=== PATIENT | female | born 1950 | race Caucasian/White ===

== ENCOUNTER 2024-05-19 03:01 | Inpatient (IN) | payer MEDICARE ==
[2024-05-19] MEDS ORDERED: HEPARIN SODIUM 1,000 UN/ML (10ML VL) IV PRN (03:16)
[2024-05-19] MEDS ORDERED: NALOXONE 0.4 MG/ML 1 ML VIAL IV PRN ×2 (03:27→08:24)
[2024-05-19] MEDS ORDERED: ONDANSETRON 4 MG/2 ML VIAL IVP PRN (03:27)
[2024-05-19] MEDS: SODIUM CHLORIDE 0.9% 1,000 ML IV STA (03:33)
[2024-05-19 03:41] LABS: Basophils # (A) 0.1 k/uL (0-0.2); Basophils % (A) 1 %; Eosinophils # (A) 0.2 k/uL (0-0.7); Eosinophils % (A) 2 %; HCT 42.5 % (34.0-46.0); HGB 13.4 gm/dL (11.4-16.0); Lymphocytes # (A) 2.5 k/uL (1.0-4.8); Lymphocytes % (A) 32 %; MCH 27.9 pg (25.0-35.0); MCHC 31.7 g/dL (31.0-37.0); Mean Platelet Volume 7.9; Monocytes # (A) 0.4 k/uL (0-1.0); Monocytes % (A) 6 %; Neutrophils # (A) 4.5 k/uL (1.3-7.7); Neutrophils % (A) 58 %; Platelet Count 237 k/uL (150-450); RBC 4.83 m/uL (3.80-5.40); WBC 7.7 k/uL (3.8-10.6)
[2024-05-19] MEDS: HEPARIN SOD,PORK IN 0.45% NACL 25,000 UNIT in 0.45% NACL 1 250ML.BAG IV SCH (03:46)
[2024-05-19 03:54] LABS: INR 1.1 (<1.2); Partial Thromboplastin Time 78.8 sec (22.0-30.0); Prothrombin Time 11.8 sec (10.0-12.5)
--- NOTE | 2024-05-19 03:58 | ED ---
General Adult HPI - General Chief complaint: Chest Pain Stated complaint: nstemi Time Seen by Provider: 05/19/24 03:10 Source: patient, EMS, RN notes reviewed, old records reviewed Mode of arrival: EMS Limitations: no limitations - History of Present Illness Initial comments: Patient is a 74-year-old female presents emergency department after being transferred from [facility] for chest pain. Patient has been having 2 days of intermittent chest discomfort. She had no symptoms when she arrived at the outside emergency department for evaluation. Patient has no cardiac history. Has a history of hypothyroidism and is on Synthroid. States she was having intermittent chest pain over the last 2 days. Describes it as all over t he front of her chest and a pressure sensation. No radiation of the pain. Would have associated diaphoresis and some mild nausea with it. Last occurred per patient at approximately 4 PM on May 18, 2024. Unknown how long it lasted however patient stated that it resolved by the time she was seen at the outside ER. Patient was transferred here for an NSTEMI as the patient had an elevated troponin on their assay. Remainder the patient's workup was unremarkable at the other facility. Presents for further evaluation at this time. Patient was screened for possible blood clot as she did have recent hip replacement however age-adjusted D-dimer was within normal limits. Patient currently presents after being transferred on a heparin drip. Already received 324 mg of aspirin. States she has no acute complaints at this time. Denies any current chest pain at this time. - Related Data Allergies Allergy/AdvReac Type Severity Reaction Status Date / Time bacitracin Allergy Rash/Hives Verified 05/19/24 03:18 [From Neosporin ([id number])] neomycin Allergy Rash/Hives Verified 05/19/24 03:18 [From Neosporin ([id number])] Penicillins Allergy Rash/Hives Verified 05/19/24 03:18 polymyxin B Allergy Rash/Hives Verified 05/19/24 03:18 [From Neosporin ([id number])] Review of Systems ROS Statement: Those systems with pertinent positive or pertinent negative responses have been documented in the HPI. Review of Systems: CONST: Denies fever EYES: Denies blurry vision ENT: Denies nasal congestion C/V: Denies Chest pain RESP: Denies shortness of breath GI: Denies abdominal pain : Denies dysuria SKIN: Denies rash. MSK: Denies joint pain. NEURO: Denies headache ROS Other: All systems not noted in ROS Statement are negative. Past Medical History Past Medical History: Hyperlipidemia, Thyroid Disorder History of Any Multi-Drug Resistant Organisms: None Reported Past Surgical History: Hysterectomy, Orthopedic Surgery Past Psychological History: No Psychological Hx Reported Smoking Status: Former smoker Past Alcohol Use History: Rare Past Drug Use History: None Reported General Exam - General Exam Comments Initial Comments: General: Appears in no acute distress. HEAD: Normal with no signs of head trauma. EYES: PERRLA, EOMI, conjunctiva normal, no discharge. ENT: Hearing grossly intact, normal oropharynx. RESPIRATORY: Clear breath sounds bilaterally. No wheezes, rales, or rhonchi. C/V: Regular rate and rhythm. S1 and S2 auscultated, no edema, peripheral pulses 2+ and intact throughout ABD: Abd is soft, nontender, nondistended EXT: Normal range of motion, no obvious deformity SKIN: No rashes or lesions observed on exposed skin. NEURO: Alert and oriented x 4. Cranial nerves II-XII intact. No focal sensory or strength deficits. Limitations: no limitations Course Vital Signs 05/19/24 03:08 Temperature 97.6 F Pulse Rate 69 Respiratory 17 Rate Blood Pressure 139/71 O2 Sat by Pulse 99 Oximetry Medical Decision Making - Medical Decision Making Was pt. sent in by a medical professional or institution (MIRIAM Escobar, BAGGING MACHINE OPERATOR, urgent care, hospital, or residential...) When possible be specific @ -Transferred from [facility] for cardiac evaluation for NSTEMI. Did you speak to anyone other than the patient for history (EMS, parent, family, police, friend...)? What history was obtained from this source @ -No Did you review nursing and triage notes (agree or disagree)? Why? @ -I reviewed and agree with nursing and triage notes Were old charts reviewed (outside hosp., previous admission, EMS record, old EKG, old radiological studies, urgent care reports/EKG's, residential records)? Report findings @ -Reviewed charts from [facility] which did show the elevated troponin. Differential Diagnosis (chest pain, altered mental status, abdominal pain women, abdominal pain men, vaginal bleeding, weakness, fever, dyspnea, syncope, headache, dizziness, GI bleed, back pain, seizure, CVA, palpatations, mental health, musculoskeletal)? @ -Differential Chest Pain: Stable Angina, Unstable Angina, STEMI, NSTEMI Aortic Dissection, Pneumothorax, Musculoskeletal, Esophageal Spasm GERD, Cholecystitis, Pancreatitis, Zoster, this is not meant to be an all-inclusive list. EKG interpreted by me (3pts min.). @ -As above X-rays interpreted by me (1pt min.). @ -None done CT interpreted by me (1pt min.). @ -None done U/S interpreted by me (1pt. min.). @ -None done What testing was considered but not performed or refused? (CT, X-rays, U/S, labs)? Why? @ -None What meds were considered but not given or refused? Why? @ -None Did you discuss the management of the patient with other professionals (professionals i.e. , PA, BAGGING MACHINE OPERATOR, lab, RT, psych nurse, family welfare social work professor, gum dipper, teacher, parole or probation officer, welfare case worker)? Give summary @ -Discussed with midlevel provider Hank of [facility] who accepted the admission. Was smoking cessation discussed for >3mins.? @ -No Was critical care preformed (if so, how long)? @ -yes, 30 minutes. Were there social determinants of health that impacted care today? How? (Homelessness, low income, unemployed, alcoholism, drug addiction, transportation, low edu. Level, literacy, decrease access to med. care, prison, rehab)? @ -No Was there de-escalation of care discussed even if they declined (Discuss DNR or withdrawal of care, Hospice)? DNR status @ -No What co-morbidities impacted this encounter? (DM, HTN, Smoking, COPD, CAD, Cancer, CVA, ARF, Chemo, Hep., AIDS, mental health diagnosis, sleep apnea, morbid obesity)? @ -None Was patient admitted / discharged? Hospital course, mention meds given and route, prescriptions, significant lab abnormalities, going to OR and other perti nent info. @ -Based on the patient's presentation and physical exam, presents emergency department for admission for cardiac evaluation for NSTEMI. Found to have elevated troponin with no EKG changes at outside hospital. Was initiated on heparin drip after receiving 324 mg of aspirin. Patient has been asymptomatic since last episode of chest pain at approximately 4 PM yesterday afternoon. She remains asymptomatic at this time with stable vital signs. I discussed with the patient and she will be admitted with cardiology evaluation. Echo ordered. Patient made n.p.o. for now until evaluation by cardiology. She was in agreement this plan. EKG showed T wave inversions in lead III and aVF.Patient was admitted, patient's laboratory results returned. They are remarkable for an elevated troponin of 2.290. I did reevaluate the patient at approximately 0430. She continues to have no symptoms at all. Denies chest pain, shortness of breath. We will keep the patient n.p.o. and continue with admission for NSTEMI. Advised the patient to let us know if she begins having any chest pain or symptoms. She was in agreement this plan. I spoke with the admitting team, DEMETRIS Mckinney of [facility] who accepted the admission. Cardiology was consulted. Undiagnosed new problem with uncertain prognosis? @ -No Drug Therapy requiring intensive monitoring for toxicity (Heparin, Nitro, Insulin, Cardizem)? @ -Heparin Were any procedures done? @ -No Diagnosis/symptom? @ -NSTEMI Acute, or Chronic, or Acute on Chronic? @ -Acute Uncomplicated (without systemic symptoms) or Complicated (systemic symptoms)? @ -Complicated Side effects of treatment? @ -No Exacerbation, Progression, or Severe Exacerbation? @ -No Poses a threat to life or bodily function? How? (Chest pain, USA, OR, pneumonia, PE, COPD, DKA, ARF, appy, cholecystitis, CVA, Diverticulitis, Homicidal, Suicidal, threat to staff... and all critical care pts) @ -Yes - Lab Data Result diagrams: 05/19/24 03:31 - EKG Data -: EKG Interpreted by Me EKG Comments: 12-lead Electrocardiogram Interpretation Note EKG was reviewed and interpreted by myself. 12-lead ECG performed at 0319 is interpreted by me as revealing normal sinus rhythm at a rate of 67 beats per minute. Lowry is normal. OH interval is 166 ms, QRS duration is 74 ms, QTc is 374 ms. T wave inversion seen in III and aVF.. There were no ST abnormalities to suggest myocardial ischemia or injury. R wave progression across the precordium was satisfactory. By my interpretation this EKG is non-diagnostic for acute ischemia. Critical Care Time Critical Care Time: Yes Total Critical Care Time: 30 Disposition Clinical Impression: Acute non-ST elevation myocardial infarction (NSTEMI) Disposition: ADMITTED IP TO THIS HOSP Condition: Serious Time of Disposition: 03:27
[2024-05-19 04:37] LABS: Blood Urea Nitrogen 17 mg/dL (7-17); Total Bilirubin 0.4 mg/dL (0.2-1.3)
[2024-05-19 06:09] LABS: ALT 15 U/L (4-34); AST 30 U/L (14-36); African American GFR (CKD) >90 (>60 ml/min/1.73 sqM); Albumin 3.6 g/dL (3.5-5.0); Alkaline Phosphatase 131 U/L (38-126); Anion Gap 5 mmol/L; Calcium 9.9 mg/dL (8.4-10.2); Carbon Dioxide 27 mmol/L (22-30); Chloride 104 mmol/L (98-107); Glucose 96 mg/dL (74-99); Magnesium 1.9 mg/dL (1.6-2.3); Non-African American GFR(CKD) 78 (>60 ml/min/1.73 sqM); Sodium 136 mmol/L (137-145); Total Protein 6.3 g/dL (6.3-8.2)
[2024-05-19] MEDS ORDERED: MELATONIN 3 MG TABLET PO PRN (08:24)
[2024-05-19] MEDS ORDERED: ACETAMINOPHEN TAB 325 MG TAB PO PRN (08:24)
--- NOTE | 2024-05-19 08:26 | P.HPIM ---
History of Present Illness H&P Date: 05/19/24 History of present illness; patient is a 74-year-old lady with past medical history significant for hypothyroidism who is a transfer from [facility] for chest pain. Patient stated she was all right yesterday evening when after dinnertime she started noticing chest pressure that was central in location, nonradiating, associated with diaphoresis and lightheadedness. Patient also having shortness of breath at time. That episode lasted 15 minutes, it was followed by another episode a few minutes later. Patient denied any palpitation at the time. There was no complaint of orthopnea or PND. Patient denies any swelling of feet. Patient did mention she had a similar episode a couple of days back as well. Because of this chest pain, patient was brought to [facility] where she was found to have elevated troponin and started on heparin and was transferred to [facility]. Patient is recent history of hip surgery Initial lab work done in the ER showed WBC 7.7, hemoglobin 13.4, platelet count 237, sodium 136, potassium 4, BUN 17, creatinine 0.75, calcium 9.9, magnesium 1.1, troponin 2.290 EKG done in the ER showed heart rate of 67, no ST segment elevation or depression seen, no T-wave inversions seen. Patient admitted to internal medicine service REVIEW OF SYSTEMS: CONSTITUTIONAL: No fever, no malaise, no fatigue. HEENT: No recent visual problems or hearing problems. Denied any sore throat. CARDIOVASCULAR: As mentioned above PULMONARY: As mentioned above GASTROINTESTINAL: No diarrhea, no nausea, no vomiting, no abdominal pain. NEUROLOGICAL: No headaches, no weakness, no numbness. HEMATOLOGICAL: Denies any bleeding or petechiae. GENITOURINARY: Denies any burning micturition, frequency, or urgency. MUSCULOSKELETAL/RHEUMATOLOGICAL: Denies any joint pain, swelling, or any muscle pain. ENDOCRINE: Denies any polyuria or polydipsia. The rest of the 14-point review of systems is negative. PHYSICAL EXAMINATION: GENERAL: The patient is alert and oriented x3, not in any acute distress. Well developed, well nourished. HEENT: Pupils are round and equally reacting to light. EOMI. No scleral icterus. No conjunctival pallor. Normocephalic, atraumatic. No pharyngeal erythema. No thyromegaly. CARDIOVASCULAR: S1 and S2 present. No murmurs, rubs, or gallops. PULMONARY: Chest is clear to auscultation, no wheezing or crackles. ABDOMEN: Soft, nontender, nondistended, normoactive bowel sounds. No palpable organomegaly. MUSCULOSKELETAL: No joint swelling or deformity. EXTREMITIES: No cyanosis, clubbing, or pedal edema. NEUROLOGICAL: Gross neurological examination did not reveal any focal deficits. SKIN: No rashes. Assessment and plan NSTEMI Hypothyroidism Monitor vital signs Monitor CBC Monitor CMP Continue telemetry monitoring Trend troponin Ordered D-dimer Ordered 2D echo Ordered lipid panel Ordered TSH Continue pharmacy dose heparin Resume home meds once verified Consult cardiology Labs and medication were reviewed.. Continue same treatment. Continue with symptomatic treatment. Resume home medication. Monitor labs and vitals. DVT and GI prophylaxis. Further recommendations as per clinical course of the p atient Dictation was produced using [employer] ([employer]) dictation software. please excuse any grammatical, word or spelling errors. Past Medical History Past Medical History: Hyperlipidemia, Thyroid Disorder History of Any Multi-Drug Resistant Organisms: None Reported Past Surgical History: Hysterectomy, Orthopedic Surgery Past Psychological History: No Psychological Hx Reported Smoking Status: Former smoker Past Alcohol Use History: Rare Past Drug Use History: None Reported Medications and Allergies Allergies Allergy/AdvReac Type Severity Reaction Status Date / Time bacitracin Allergy Rash/Hives Verified 05/19/24 03:18 [From Neosporin ([id number])] neomycin Allergy Rash/Hives Verified 05/19/24 03:18 [From Neosporin ([id number])] Penicillins Allergy Rash/Hives Verified 05/19/24 03:18 polymyxin B Allergy Rash/Hives Verified 05/19/24 03:18 [From Neosporin ([id number])] Physical Exam Vitals: Vital Signs Temp Pulse Resp BP Pulse Ox 05/19/24 04:31 57 L 17 123/66 98 05/19/24 03:08 97.6 F 69 17 139/71 99 Intake and Output 05/18/24 05/19/24 05/19/24 22:59 06:59 14:59 Other: Weight 58.06 kg Results CBC & Chem 7: 05/19/24 03:31 05/19/24 03:31 Labs: Abnormal Lab Results - Last 24 Hours (Table) 05/19/24 05/19/24 05/19/24 Range/Units 03:31 03:31 03:31 APTT 78.8 H (22.0-30.0) sec Sodium 136 L (137-145) mmol/L Alkaline Phosphatase 131 H (38-126) U/L Troponin I 2.290 H* (0.000-0.034) ng/mL
--- NOTE | 2024-05-19 09:34 | P.CRDCN ---
History of Present Illness Consult date: 05/19/24 History of present illness: The patient is a pleasant 74-year-old female patient with no significant past medical history besides hypothyroidism and history of smoking and unknown family history because she was adopted presented initially to the emergency room at [facility] with a chest discomfort and subsequently she was transferred here for further evaluation. She has been experiencing intermittent episode of chest discomfort for the last 3 to 4 days as a pressure in the chest with no radiation and no associated symptoms of shortness of breath or sweating or dizziness or lightheadedness or presyncope or syncope further evaluation was performed including an EKG showing sinus mechanism with T wave inversion inferiorly and ST changes inferiorly concerning for ischemia as well as cardiac enzymes came in to be abnormal and concerning for acute coronary event. She underwent hip surgery back in February 2024. Her EKG is not concerning for pulmonary embolism and she is not tachycardic or hypoxic at this point. The physical examination is remarkable for regular rhythm with a soft systolic murmur and clear breathing sounds bilaterally and no edema was noted in the lower extremities Assessment Acute non-ST ovation myocardial infarction History of smoking Plan Continue the current medical regimen including heparin Add aspirin and beta-shruthi Add statin Follow-up on the echocardiogram Proceed with coronary angiogram Past Medical History Past Medical History: Hyperlipidemia, Thyroid Disorder History of Any Multi-Drug Resistant Organisms: None Reported Past Surgical History: Hysterectomy, Orthopedic Surgery Past Psychological History: No Psychological Hx Reported Smoking Status: Former smoker Past Alcohol Use History: Rare Past Drug Use History: None Reported Medications and Allergies Home Medications Medication Instructions Recorded Confirmed Type Levothyroxine Sodium [Synthroid] 88 mcg PO DAILY 05/19/24 05/19/24 History Allergies Allergy/AdvReac Type Severity Reaction Status Date / Time bacitracin Allergy Rash/Hives Verified 05/19/24 08:51 [From Neosporin ([id number])] neomycin Allergy Rash/Hives Verified 05/19/24 08:51 [From Neosporin ([id number])] Penicillins Allergy Unknown Verified 05/19/24 08:51 Childhood polymyxin B Allergy Rash/Hives Verified 05/19/24 08:51 [From Neosporin ([id number])] Physical Exam Vitals: Vital Signs Temp Pulse Resp BP Pulse Ox 05/19/24 04:31 57 L 17 123/66 98 05/19/24 03:08 97.6 F 69 17 139/71 99 Intake and Output 05/18/24 05/19/24 05/19/24 22:59 06:59 14:59 Other: Weight 58.06 kg Results 05/19/24 03:31 05/19/24 03:31 Cardiac Enzymes 05/19/24 05/19/24 05/19/24 Range/Units 03:31 03:31 07:35 AST 30 (14-36) U/L Troponin I 2.290 H* 3.260 H* (0.000-0.034) ng/mL Coagulation 05/19/24 Range/Units 03:31 PT 11.8 (10.0-12.5) sec APTT 78.8 H (22.0-30.0) sec CBC 05/19/24 Range/Units 03:31 WBC 7.7 (3.8-10.6) k/uL RBC 4.83 (3.80-5.40) m/uL Hgb 13.4 (11.4-16.0) gm/dL Hct 42.5 (34.0-46.0) % Plt Count 237 (150-450) k/uL Comprehensive Metabolic Panel 05/19/24 Range/Units 03:31 Sodium 136 L (137-145) mmol/L Potassium 4.0 (3.5-5.1) mmol/L Chloride 104 (98-107) mmol/L Carbon Dioxide 27 (22-30) mmol/L BUN 17 (7-17) mg/dL Creatinine 0.75 (0.52-1.04) mg/dL Glucose 96 (74-99) mg/dL Calcium 9.9 (8.4-10.2) mg/dL AST 30 (14-36) U/L ALT 15 (4-34) U/L Alkaline Phosphatase 131 H (38-126) U/L Total Protein 6.3 (6.3-8.2) g/dL Albumin 3.6 (3.5-5.0) g/dL Current Medications Generic Name Dose Route Start Last Admin Trade Name Freq PRN Reason Stop Dose Admin Acetaminophen 650 mg 05/19/24 08:24 Acetaminophen Tab 325 Mg Tab PO Q6HR PRN Mild Pain or Fever > 100.5 Heparin Sodium (Porcine) 0 unit 05/19/24 03:16 Heparin Sodium 1,000 Un/Ml (10ml Vl) IV PER PROTOCOL PRN Low PTT Protocol Sodium Chloride 1,000 mls @ 100 mls/hr 05/19/24 03:15 05/19/24 03:33 Saline 0.9% IV 05/19/24 13:14 100 mls/hr .Q10H STA Administration Heparin Sodium/Sodium Chloride 250 mls @ 6.967 mls/hr 05/19/24 03:30 05/19/24 03:46 25,000 unit/ Sodium Chloride IV 12 units/kg/hr .Q24H FLOR 6.967 mls/hr Administration Protocol 12 UNITS/KG/HR Melatonin 3 mg 05/19/24 08:24 Melatonin 3 Mg Tablet PO HS PRN Insomnia Naloxone HCl 0.2 mg 05/19/24 03:27 Naloxone 0.4 Mg/Ml 1 Ml Vial IV Q2M PRN Opioid Reversal Naloxone HCl 0.2 mg 05/19/24 08:24 Naloxone 0.4 Mg/Ml 1 Ml Vial IV Q2M PRN Opioid Reversal Ondansetron HCl 4 mg 05/19/24 03:27 Ondansetron 4 Mg/2 Ml Vial IVP Q8HR PRN Nausea And Vomiting Intake and Output 05/18/24 05/19/24 05/19/24 22:59 06:59 14:59 Other: Weight 58.06 kg 05/19/24 03:31 05/19/24 03:31
[2024-05-19] MEDS: ASPIRIN 325 MG TAB PO STA (10:21)
[2024-05-19] MEDS: VERAPAMIL SYRINGE (5 MG/10 ML) INTRAARTER ONE (11:39)
[2024-05-19] MEDS: MIDAZOLAM 2 MG/2 ML VIAL IVP ONE (11:39)
[2024-05-19] MEDS: LIDOCAINE 1% INJ 10MG/ML (20 ML MDV) SQ ONE (11:39)
[2024-05-19] MEDS: HEPARIN SODIUM 1,000 UN/ML (10ML VL) IVP ONE (11:50)
[2024-05-19] MEDS: fentaNYL (PF) 50 MCG/1 ML VIAL IVP ONE (11:50)
[2024-05-19] MEDS: FLUMAZENIL 0.1 MG/ML 5 ML VIAL IVP ONE (11:55)
[2024-05-19] MEDS: PRASUGREL 10 MG TAB PO ONE (12:02)
[2024-05-19] MEDS: SODIUM CHLORIDE 0.9% 1,000 ML IV ONE (12:08)
[2024-05-19] MEDS: IOPAMIDOL-370 100ML BTL INJ ONE (12:11)
[2024-05-19] MEDS ORDERED: RX INFO: IV CONTRAST WAS GIVEN 1 EACH MISC MISCELLANE PRN (12:15)
[2024-05-19] MEDS ORDERED: MAG HYDROX/AL HYDROX/SIMETH 30 ML CUP PO PRN (12:15)
[2024-05-19] MEDS ORDERED: ZOLPIDEM 5 MG TAB PO PRN (12:15)
[2024-05-19] MEDS ORDERED: NITROGLYCERIN SL TABS 0.4 MG TAB SUBLINGUAL PRN (12:15)
[2024-05-19] MEDS ORDERED: ATROPINE SULFATE 0.1 MG/ML 10ML SYRINGE IV PRN (12:15)
--- NOTE | 2024-05-19 12:19 | P.PCN ---
Date of Procedure: 05/19/24 Operative Findings: CARDIAC CATHETERIZATION AND PERCUTANEOUS CORONARY INTERVENTION PERFORMING PHYSICIAN: Tobi Clancy MD, [facility] PROCEDURE PERFORMED: 1. Selective right and left coronary angiogram and left heart catheterization 2. Successful stenting of mid RCA using 4.0 x 23 mm Xience RAS with an excel lent angiographic results 3. Adjunctive use of IVUS 4. Ultrasound-guided access of the right radial artery INDICATION: Acute coronary send COMPLICATION: None APPROACH: Right radial artery LEVEL OF SEDATION: Moderate with the sedation time off 34 minutes PROCEDURE DESCRIPTION: After obtaining informed consent the patient was brought to the cardiac Steam Press Tender with right radial artery was cannulated using micropuncture technique under ultrasound guidance a micropuncture wire passed easily then I placed a 6 Georgian 11 cm sheath at the right radial artery and give the patient 2 mg of verapamil intra-arterial and 3000's of heparin intravenous with selective right and left coronary angiogram performed using JR4 and JL 3.5 catheters. Left heart catheterization was performed using the JR4 catheter which crossed the aortic valve. After that I did decide to intervene on the RCA with anticoagulation continued using heparin with continuous ACT monitoring. Subsequently the patient was loaded with 60 of Effient. I did engage the RCA using JR 3.5 guiding catheter with I did wired using a run-through wire. IVUS was performed that showed a diameter around 4 mm. Predilatation was performed using 3.5 mm balloon before I stented the RCA using 4.0 x 23 mm stent which was postdilated using 4 mm NC balloon after IVUS was performed. Final angiogram showed good angiographic results and the procedure was completed with no SELECTIVE CORONARY ANGIOGRAM: The right coronary artery: Large caliber vessel with critical disease involving the mid Left main: Is angiographically The left circumflex: Large caliber vessel nondominant vessel with no evidence of high-grade stent The left anterior descending artery: Appears to have mild disease HEMODYNAMICS: The LVEDP was 14 mmHg with no gradient was identified across aortic valve CONCLUSION: 1. Critical disease involving the mid RCA. I did perform successful PCI of the RCA as described above 2. No evidence of high-grade disease involving the left coronary system 3. Normal left-sided filling pressure POSTPROCEDURE MANAGEMENT: 1. Dual antiplatelet therapy using aspirin and Effient for 12 month 2. Aggressive cholesterol control 3. Follow-up with the patient
[2024-05-19] MEDS: SODIUM CHLORIDE 0.9% 1,000 ML in EMPTY BAG 1 BAG IV SCH (12:55)
[2024-05-19] MEDS: ATORVASTATIN 80 MG TAB PO SCH (21:32)
[2024-05-19] MEDS: METOPROLOL TARTRATE 25 MG TAB PO SCH (21:32)
[2024-05-20 07:45] LABS: Basophils % (A) 0 %; Eosinophils # (A) 0.1 k/uL (0-0.7); Eosinophils % (A) 2 %; HCT 42.8 % (34.0-46.0); HGB 13.9 gm/dL (11.4-16.0); Lymphocytes # (A) 1.8 k/uL (1.0-4.8); Lymphocytes % (A) 21 %; MCH 28.5 pg (25.0-35.0); MCHC 32.5 g/dL (31.0-37.0); MCV 87.7 fL (80.0-100.0); Mean Platelet Volume 7.8; Monocytes # (A) 0.5 k/uL (0-1.0); Monocytes % (A) 6 %; Neutrophils # (A) 5.8 k/uL (1.3-7.7); Neutrophils % (A) 70 %; Platelet Count 259 k/uL (150-450); RBC 4.88 m/uL (3.80-5.40); RDW 13.7 % (11.5-15.5); WBC 8.3 k/uL (3.8-10.6)
[2024-05-20 07:52] LABS: Prothrombin Time 10.6 sec (10.0-12.5)
[2024-05-20 08:15] LABS: ALT 16 U/L (4-34); AST 39 U/L (14-36); African American GFR (CKD) 81 (>60 ml/min/1.73 sqM); Albumin 3.8 g/dL (3.5-5.0); Alkaline Phosphatase 122 U/L (38-126); Anion Gap 5 mmol/L; Blood Urea Nitrogen 13 mg/dL (7-17); Calcium 9.4 mg/dL (8.4-10.2); Carbon Dioxide 30 mmol/L (22-30); Chloride 102 mmol/L (98-107); Glucose 90 mg/dL (74-99); Non-African American GFR(CKD) 70 (>60 ml/min/1.73 sqM); Potassium 4.2 mmol/L (3.5-5.1); Sodium 137 mmol/L (137-145); Total Bilirubin 0.6 mg/dL (0.2-1.3); Total Protein 6.6 g/dL (6.3-8.2)
--- NOTE | 2024-05-20 08:31 | P.PN ---
Subjective Progress Note Date: 05/20/24 patient is a 74-year-old lady with past medical history significant for hypothyroidism who is a transfer from [facility] for chest pain. Patient stated she was all right yesterday evening when after dinnertime she started noticing chest pressure that was central in location, nonradiating, asso ciated with diaphoresis and lightheadedness. Patient also having shortness of breath at time. That episode lasted 15 minutes, it was followed by another episode a few minutes later. Patient denied any palpitation at the time. There was no complaint of orthopnea or PND. Patient denies any swelling of feet. Patient did mention she had a similar episode a couple of days back as well. Because of this chest pain, patient was brought to [facility] where she was found to have elevated troponin and started on heparin and was transferred to [facility]. Patient is recent history of hip surgery Initial lab work done in the ER showed WBC 7.7, hemoglobin 13.4, platelet count 237, sodium 136, potassium 4, BUN 17, creatinine 0.75, calcium 9.9, magnesium 1.1, troponin 2.290 EKG done in the ER showed heart rate of 67, no ST segment elevation or depression seen, no T-wave inversions seen. Patient admitted to internal medicine service 05/20. Patient seen examined. Status post cardiac cath with PCI of the mid RCA. Denies any chest pain today REVIEW OF SYSTEMS: CONSTITUTIONAL: No fever, no malaise,. CARDIOVASCULAR: No chest pain, no palpitations, no syncope. PULMONARY: No shortness of breath, no cough, GASTROINTESTINAL: No diarrhea, no nausea, no vomiting, no abdominal pain. NEUROLOGICAL: No headaches, no weakness, PHYSICAL EXAMINATION: GENERAL: The patient is alert and oriented x3, not in any acute distress. Well developed, well nourished. HEENT: Pupils are round and equally reacting to light. EOMI. No scleral icterus. No conjunctival pallor. Normocephalic, atraumatic. No pharyngeal erythema. No thyromegaly. CARDIOVASCULAR: S1 and S2 present. No murmurs, rubs, or gallops. PULMONARY: Chest is clear to auscultation, no wheezing or crackles. ABDOMEN: Soft, nontender, nondistended, normoactive bowel sounds. No palpable organomegaly. MUSCULOSKELETAL: No joint swelling or deformity. EXTREMITIES: No cyanosis, clubbing, or pedal edema. NEUROLOGICAL: Gross neurological examination did not reveal any focal deficits. SKIN: No rashes. Assessment and plan NSTEMI Hypothyroidism Monitor vital signs Monitor CBC Monitor CMP Continue telemetry monitoring Status post cardiac cath with PCI of the mid RCA Follow-up on 2D echo Continue aspirin, Effient, Lipitor Continue Lopressor Cardiology following Labs and medication were reviewed.. Continue same treatment. Continue with symptomatic treatment. Resume home medication. Monitor labs and vitals. DVT and GI prophylaxis. Further recommendations as per clinical course of the patient Dictation was produced using Monitor dictation software. please excuse any grammatical, word or spelling errors. Objective - Vital Signs Vital signs: Vital Signs Temp 97.5 F L 05/20/24 03:13 Pulse 63 05/20/24 03:13 Resp 16 05/20/24 02:00 BP 109/63 05/20/24 03:13 Pulse Ox 99 05/20/24 03:13 FiO2 Intake & Output 05/19/24 05/20/24 05/20/24 18:59 06:59 18:59 Intake Total 930 Balance 930 Weight 58.06 kg Intake: IV 450 Intake, IV Titration 300 Amount Sodium Chloride 0.9% 1, 300 000 ml In Empty Bag 1 bag @ 75 mls/hr IV .[id number] FLOR Rx#:[id number] Oral 180 Other: # Voids 1 - Labs CBC & Chem 7: 05/20/24 06:41 05/20/24 06:41 Labs: Abnormal Lab Results - Last 24 Hours (Table) 05/19/24 05/19/24 05/19/24 Range/Units 07:35 09:48 09:48 APTT 41.5 H (22.0-30.0) sec AST (14-36) U/L Troponin I 3.260 H* 3.400 H* (0.000-0.034) ng/mL 05/20/24 Range/Units 06:41 APTT (22.0-30.0) sec AST 39 H (14-36) U/L Troponin I (0.000-0.034) ng/mL
[2024-05-20] MEDS: ASPIRIN 81 MG PO SCH (09:11)
[2024-05-20] MEDS: PRASUGREL 10 MG TAB PO SCH (09:11)
--- NOTE | 2024-05-20 09:21 | P.PN ---
Subjective Progress Note Date: 05/20/24 The patient is a pleasant 74-year-old female patient was admitted to the hospital with acute coronary syndrome and underwent a heart catheterization revealed critical RCA disease which was stented. The echo still pending May 20, 2024 The patient was seen and evaluated this morning. She is asymptomatic and hemodynamically stable. The echo still pending. The physical examination is remarkable for regular rhythm with soft systolic murmur and clear breathing sounds bilaterally and no edema was noted Assessment Acute coronary syndrome CAD status post PCI of the RCA Hypertension and dyslipidemia Plan Continue the current medical regimen including dual antiplatelet therapy Follow-up with the echocardiogram Possible discharge in the next 12 to 24 hours Objective - Vital Signs Vital signs: Vital Signs Temp 97.5 F L 05/20/24 03:13 Pulse 63 05/20/24 03:13 Resp 16 05/20/24 02:00 BP 109/63 05/20/24 03:13 Pulse Ox 99 05/20/24 03:13 FiO2 Intake & Output 05/19/24 05/20/24 05/20/24 18:59 06:59 18:59 Intake Total 930 240 Balance 930 240 Weight 58.06 kg 57.1 kg Intake: IV 450 Intake, IV Titration 300 Amount Sodium Chloride 0.9% 1, 300 000 ml In Empty Bag 1 bag @ 75 mls/hr IV .[id number] FLOR Rx#:[id number] Oral 180 240 Other: # Voids 1 1 - Labs CBC & Chem 7: 05/20/24 06:41 05/20/24 06:41 Labs: Abnormal Lab Results - Last 24 Hours (Table) 05/19/24 05/19/24 05/20/24 Range/Units 09:48 09:48 06:41 APTT 41.5 H (22.0-30.0) sec AST 39 H (14-36) U/L Troponin I 3.400 H* (0.000-0.034) ng/mL
[2024-05-20 13:10] LABS: Chol/HDL Ratio 2.96 Ratio; LDL Cholesterol,Calculated 126.7 mg/dL (0.0-131.0); VLDL Calculation 19.68 mg/dL (5.00-40.00)
--- NOTE | 2024-05-20 16:56 | CA ---
Transthoracic Echo Report Name: Katherine Bauman Age: 74 Gender: F : 1950 Exam Date: 05/20/2024 10:59 Exam Location: [facility] Ht (in): 67 Wt (lb): 128 Ordering Physician: Ivan Wong MD Attending/Referring Phys: Nipple Maker Yue Wade RDCS Procedure CPT: Indications: nstemi Cardiac Hx: stents Technical Quality: Fair Contrast 1: Total Dose (mL): Contrast 2: Total Dose (mL): MEASUREMENTS (Male / Female) Normal Values 2D ECHO LV Diastolic Diameter PLAX 4.2 cm 4.2 - 5.9 / 3.9 - 5.3 cm LV Systolic Diameter PLAX 3.3 cm IVS Diastolic Thickness 0.9 cm 0.6 - 1.0 / 0.6 - 0.9 cm LVPW Diastolic Thickness 0.9 cm 0.6 - 1.0 / 0.6 - 0.9 cm LV Relative Wall Thickness 0.4 RV Internal Dim ED PLAX 3.0 cm LA Systolic Diameter LX 3.2 cm 3.0 - 4.0 / 2.7 - 3.8 cm LV Diastolic Volume MOD BP 64.1 cm??? 67 - 155 / 56 - 104 cm??? LV Systolic Volume MOD BP 37.7 cm??? 22 - 58 / 19 - 49 cm??? LV Ejection Fraction MOD BP 41.2 % >= 55 % LV Cardiac Index MOD BP 879.1 cm???/min???m??? LV Diastolic Volume MOD 4C 66.0 cm??? LV Systolic Volume MOD 4C 38.4 cm??? LV Ejection Fraction MOD 4C 41.8 % LV Cardiac Index MOD 4C 917.1 cm???/min???m??? LV Diastolic Length 4C 6.3 cm LV Systolic Length 4C 5.9 cm LV Diastolic Volume MOD 2C 60.8 cm??? LV Systolic Volume MOD 2C 34.5 cm??? LV Ejection Fraction MOD 2C 43.3 % LV Cardiac Index MOD 2C 875.0 cm???/min???m??? LV Diastolic Length 2C 6.5 cm LV Systolic Length 2C 5.5 cm LA Volume 35.7 cm??? 18 - 58 / 22 - 52 cm??? LA Volume Index 21.6 cm???/m??? 16 - 28 cm???/m??? M-MODE Aortic Root Diameter MM 2.8 cm DOPPLER AV Peak Velocity 119.8 cm/s AV Peak Gradient 5.7 mmHg MV Area PHT 2.2 cm??? Mitral E Point Velocity 68.8 cm/s Mitral A Point Velocity 93.3 cm/s Mitral E to A Ratio 0.7 MV Deceleration Time 340.0 ms TR Peak Velocity 227.6 cm/s TR Peak Gradient 20.7 mmHg Right Ventricular Systolic Press 25.5 mmHg FINDINGS Left Ventricle Left ventricular ejection fraction is estimated at 40-45 %. Left ventricular cavity size normal. Moderately decreased left ventricular ejection fraction. Left ventricular wall thickness normal. Right Ventricle Normal right ventricular size. Right ventricular systolic pressure within normal limits. Right Atrium Normal right atrial size. No right atrial thrombus or mass seen. Left Atrium Normal left atrial size. No left atrial thrombus or mass present. Mitral Valve Mitral valve thickened. No evidence for mitral valve prolapse. No mitral stenosis. [id number] mitral regurgitation. Aortic Valve Trileaflet aortic valve. No aortic valve stenosis or regurgitation. Tricuspid Valve Structurally normal tricuspid valve. Mild tricuspid regurgitation. Pulmonic Valve Pulmonic valve not well visualized. Pericardium No pericardial effusion. Aorta Normal size aortic root and proximal ascending aorta. CONCLUSIONS Mildly impaired LV function with EF between 40 to 45% Previewed by: Dr. Tobi Clancy MD (Electronically Signed) Final Date: 20 May 2024 16:56
[2024-05-21 14:34] VITALS: BMI 19.6
--- NOTE | 2024-05-21 16:54 | P.PN ---
Subjective Progress Note Date: 05/21/24 Interval History: patient is a 74-year-old lady with past medical history significant for hypothyroidism who is a transfer from [facility] for chest pain. Patient stated she was all right yesterday evening when after dinnertime she started noticing chest pressure that was central in location, nonradiating, associated with diaphoresis and lightheadedness. Patient also having shortness of breath at time. That episode lasted 15 minutes, it was followed by another episode a few minutes later. Patient denied any palpitation at the time. There was no complaint of orthopnea or PND. Patient denies any swelling of feet. Patient did mention she had a similar episode a couple of days back as well. Because of this chest pain, patient was brought to [facility] where she was found to have elevated troponin and started on heparin and was transferred to [facility]. Patient is recent history of hip surgery Initial lab work done in the ER showed WBC 7.7, hemoglobin 13.4, platelet count 237, sodium 136, potassium 4, BUN 17, creatinine 0.75, calcium 9.9, magnesium 1.1, troponin 2.290 EKG done in the ER showed heart rate of 67, no ST segment elevation or depression seen, no T-wave inversions seen. Patient admitted to internal medicine service 05/20. Patient seen examined. Status post cardiac cath with PCI of the mid RCA. Denies any chest pain today 05/21--patient was seen and examined today. Blood pressure is soft, echocardiogram showed EF 40 to 45%. Currently on aspirin, Effient, atorvastatin, metoprolol. Will add low-dose losartan and monitor blood pressure closely. CBC and CMP unremarkable. Assessment and plan: NSTEMI: CAD status post PCI of mid RCA Hypothyroidism: Presented with chest pain, heart [facility], was noted to have elevated troponin, started on heparin drip transferred to [facility]. Monitored with serial EKG and troponin. Cardiology consulted Underwent cardiac catheterization with PCI of mid RCA Continue aspirin, statin, Effient, metoprolol, added low-dose losartan, blood pressure soft. Echocardiogram showed EF 40 to 45%. DVT prophylaxis: Subcutaneous heparin Monitor vital signs and labs Labs and medication were reviewed. Continue same treatment. Further recommendations as per clinical course of the patient PHYSICAL EXAMINATION: GENERAL: The patient is A&O x3, NAD HEENT: EOMI, Sclerae anicteric, Moist Mucous membranes Neck: Supple, Non tender, No JVD PULMONARY: Equal breath souds B/L, No wheezing, No crackles. CARDIOVASCULAR: S1, S2 present. No murmurs, rubs, or gallops. ABDOMEN: Soft, nontender, nondistended, normoactive bowel sounds. No guarding or rebound tenderness. MUSCULOSKELETAL: No edema, No cyanosis. No clubbing. Normal ROM. Intact peripheral pulses. NEUROLOGICAL: CN 2-12 grossly intact. No FND Skin: No Rash REVIEW OF SYSTEMS: CONSTITUTIONAL: No fever or chills. CARDIOVASCULAR: No chest pain, palpitations or syncope. PULMONARY: No shortness of breath, no cough, sore throat. GASTROINTESTINAL: No nausea, vomiting, diarrhea, abdominal pain. : No Dysuria, urgency, frequency. Extremities: No edema. NEUROLOGICAL: No headaches, no weakness, or numbness Dictation was produced using [employer] dictation software. please excuse any gram matical, word or spelling errors. Objective - Vital Signs Vital signs: Vital Signs Temp 98.0 F 05/21/24 11:30 Pulse 69 05/21/24 11:30 Resp 18 05/21/24 11:30 BP 100/62 05/21/24 11:30 Pulse Ox 98 05/21/24 11:30 FiO2 Intake & Output 05/20/24 05/21/24 05/21/24 18:59 06:59 18:59 Intake Total 660 500 Balance 660 500 Weight 57.1 kg 57 kg 57 kg Intake: IV 20 Invasive Line 1 10 Invasive Line 2 10 Oral 660 480 Other: Voiding Method Toilet Toilet # Voids 1 1 2 - Labs CBC & Chem 7: 05/20/24 06:41 05/20/24 06:41
[2024-05-21 17:04] VITALS: BP 128/64; PULSE 59; RESP 16; TEMP 97.5
[2024-05-21] MEDS: LOSARTAN 25 MG TAB PO SCH (17:45)
[2024-05-21] MEDS: DAPAGLIFLOZIN PROPANEDIOL 10 MG TABLET PO SCH (17:45)
[2024-05-21] MEDS ORDERED: HEPARIN SODIUM,PORCINE 5,000 UNIT/ML 1 ML VIAL SQ SCH (21:00)
== END 2024-05-21 18:03 | disposition home or self-care (01) | DRG 322 ==
LOC: EC 03:01 → 3SCARD 03:28
PROVIDERS: ADMIT Hospitalist; ATTEND Hospitalist
PROC: 4A023N7 Measurement of Cardiac Sampling and Pressure, Left Heart, Percutaneous Approach (ICD-10-PCS; principal; 2024-05-19 10:40)
PROC: 027034Z Dilation of Coronary Artery, One Artery with Drug-eluting Intraluminal Device, Percutaneous Approach (ICD-10-PCS; principal; 2024-05-19 10:40)
PROC: B240ZZ3 Ultrasonography of Single Coronary Artery, Intravascular (ICD-10-PCS; principal; 2024-05-19 10:40)
PROC: B2111ZZ Fluoroscopy of Multiple Coronary Arteries using Low Osmolar Contrast (ICD-10-PCS; principal; 2024-05-19 10:40)
DX: I21.4 Non-ST elevation (NSTEMI) myocardial infarction (principal); E03.9 Hypothyroidism, unspecified; I10 Essential (primary) hypertension; E78.5 Hyperlipidemia, unspecified; I25.10 Atherosclerotic heart disease of native coronary artery without angina pectoris; Z79.82 Long term (current) use of aspirin; Z79.890 Hormone replacement therapy; Z79.899 Other long term (current) drug therapy; Z87.891 Personal history of nicotine dependence; Z96.649 Presence of unspecified artificial hip joint; Z71.3 Dietary counseling and surveillance; Z28.21 Immunization not carried out because of patient refusal; Z88.1 Allergy status to other antibiotic agents; Z88.0 Allergy status to penicillin
CPT/HCPCS: 36415; 80053; 80061; 83036; 83735; 84443; 84484; 85025; 85610; 85730; 92978; 93005; 93306; 93458; 96374; 99291